=== PATIENT | female | born 1990 | race African-American/Black ===

== ENCOUNTER 2024-07-02 13:15 | Emergency (ER) | payer MEDICAID, OTHER ==
[~2024-07-02] VITALS: Ht 162.6 cm; Wt 55.0 kg
[~2024-07-02 13:15] MED LIST: FOLI-43 PO
[2024-07-02 13:22] VITALS: O2SAT 96
[2024-07-02 13:26] VITALS: BP 104/56; PULSE 108; RESP 18; TEMP 97.8; O2SAT 97
[2024-07-02] MEDS ORDERED: SODIUM CHLORIDE 0.9% (SEPSIS BOLUS) IV ONE (14:45)
[2024-07-02] MEDS ORDERED: MORPHINE SULFATE 4 MG/ML INJ (FOR IV/IM USE) IV ONE (14:45)
[2024-07-02 14:57] LABS: CHLORIDE 110 mEq/L (98-107); POTASSIUM 3.7 mEq/L (3.5-5.1); SODIUM 139 mEq/L (136-145)
[2024-07-02 14:58] LABS: CALCIUM 8.7 mg/dL (8.7-10.4); CARBON DIOXIDE 22 mEq/L (21-32)
[2024-07-02 15:03] LABS: CREATININE 0.5 mg/dL (0.6-1.0); GLUCOSE 110 mg/dL (70-105); UREA NITROGEN BLOOD 8 mg/dL (9-23)
[2024-07-02 15:12] LABS: HEMATOCRIT. 21.4 % (36.0-48.0); HEMOGLOBIN. 7.9 g/dL (12.0-16.0); MEAN CORPUSCULAR HEMOGLOBIN 34.4 pg (28.0-32.0); MEAN CORPUSCULAR HGB CONC 36.7 g/dL (31.0-37.0); MEAN CORPUSCULAR VOLUME 93.8 fL (81.0-99.0); RED BLOOD CELL COUNT 2.28 mill/uL (4.2-5.4); RED CELL DISTRIBUTION WIDTH 32.5 % (11.6-14.6); WHITE BLOOD COUNT 19.5 x1000/uL (4.5-11.0)
[2024-07-02 15:13] LABS: DIFFERENTIAL COMMENT 1; MEAN PLATELET VOLUME 8.1 fl (7.4-10.4); PLATELET 489 x1000/uL (130-400)
[2024-07-02 15:14] LABS: LYMPHOCYTES % 38.4 % (20.0-50.0); MONOCYTES % 12.3 % (2.0-8.0); NEUTROPHILS % 45.9 % (40.0-76.0)
[2024-07-02 15:15] LABS: ADD RBC MORPHOLOGY YES; BASOPHILS % 0.4 % (0.0-2.0)
[2024-07-02 15:32] LABS: TROPONIN I HIGH SENSITIVITY < 4 ng/L (3.0-34)
[2024-07-02] MEDS ORDERED: LEVOFLOXACIN 750MG PREMIX 150 ML IV ONE (15:45)
[2024-07-02 18:15] LABS: PLATELET ESTIMATE INCREASED
[2024-07-02 18:17] LABS: ANISOCYTOSIS 3+
[2024-07-02 18:18] LABS: HYPOCHROMASIA 1+; SICKLE CELLS 1+
== END 2024-07-02 23:10 | disposition left against medical advice (07) ==
LOC: ER 13:15 → EDBEDREQ 15:40 → ER 23:10 → CANBEDREQ 07-03 00:25
DX: D57.00 Hb-SS disease with crisis, unspecified (principal); D57.211 Sickle-cell/Hb-C disease with acute chest syndrome; D64.9 Anemia, unspecified; F12.10 Cannabis abuse, uncomplicated
CPT/HCPCS: 99284; 71045; 80048; 83690; 85025; 85044; 84484; 36415; J7030